=== PATIENT | female | born 1985 | race Caucasian/White ===

== ENCOUNTER 2021-08-17 05:28 | Inpatient (IN) | payer OTHER ==
[2021-08-17] MEDS ORDERED: Scopolamine 1.5 MG Transdermal Patch TRDERM ONE (05:30)
[2021-08-17] MEDS ORDERED: Acetaminophen 500 MG Tab PO ONE (05:30)
[2021-08-17] MEDS ORDERED: Celecoxib 200 MG Cap PO ONE (05:30)
[2021-08-17] MEDS ORDERED: Dextrose 5%-Lactated Ringers 1,000 ML IV SCH (06:00)
[2021-08-17] MEDS ORDERED: cefOXitin 2 GM Vial ONE (06:45)
[2021-08-17] MEDS ORDERED: Lidocaine 1% with EPINEPHrine 1:100,000 50 ML MDV ONE (06:46)
[2021-08-17] MEDS ORDERED: Bupivacaine 0.5% 50 ML MDV ONE (06:46)
[2021-08-17] MEDS ORDERED: fentaNYL 250 MCG/5 ML SDV ONE (06:58)
[2021-08-17] MEDS ORDERED: Glycopyrrolate 0.2 MG/ML 5 ML MDV ONE (06:59)
[2021-08-17] MEDS ORDERED: Succinylcholine 200 MG/10 ML MDV ONE (06:59)
[2021-08-17] MEDS ORDERED: Dexamethasone 4 MG/ML SDV ONE (06:59)
[2021-08-17] MEDS ORDERED: Propofol 200 MG/20 ML SDV ONE (06:59)
[2021-08-17] MEDS ORDERED: Neostigmine Methylsulfate 1 MG/ML 5 ML Syringe ONE (06:59)
[2021-08-17] MEDS ORDERED: Rocuronium 50 MG/5 ML Vial ONE (06:59)
[2021-08-17] MEDS ORDERED: Albuterol/Ipratropium 3.0-0.5 MG/3 ML Neb Soln NEB ONE (07:00)
[2021-08-17] MEDS ORDERED: Lactated Ringers 1,000 ML ONE (07:02)
[2021-08-17] MEDS ORDERED: cefOXitin 2 GM in Sodium Chloride 0.9% 50 ML IV ONE (07:15)
[2021-08-17] MEDS ORDERED: Ketamine 500 MG/5 ML MDV IV SCH (07:30)
[2021-08-17] MEDS ORDERED: Ketamine 19 MG in Sodium Chloride 0.9% 19.81 ML IV SCH (07:30)
[2021-08-17] MEDS ORDERED: fentaNYL 100 MCG/2 ML SDV ONE (08:35)
[2021-08-17] MEDS ORDERED: hydrOXYzine HCL 100 MG/2 ML SDV IM ONE (09:15)
[2021-08-17] MEDS ORDERED: Cyclobenzaprine 10 MG Tab PO PRN (10:05)
[2021-08-17] MEDS: oxyCODONE 5 MG Tab PO PRN ×3 (10:26→21:41)
[2021-08-17] MEDS: Albuterol/Ipratropium 3.0-0.5 MG/3 ML Neb Soln INH SCH ×3 (10:46→21:34)
[2021-08-17] MEDS ORDERED: Metoclopramide 10 MG/2 ML SDV IVPUSH PRN (11:00)
[2021-08-17] MEDS ORDERED: Albuterol/Ipratropium 3.0-0.5 MG/3 ML Neb Soln INH PRN (11:00)
[2021-08-17] MEDS ORDERED: HYDROmorphone 0.5 MG/0.5 ML Syringe IVPUSH PRN (11:00)
[2021-08-17] MEDS ORDERED: HYDROmorphone 1 MG/ML Syringe IV PRN (11:00)
[2021-08-17] MEDS ORDERED: Labetalol 20 MG/4 ML Syringe IVPUSH PRN (11:00)
[2021-08-17] MEDS ORDERED: diphenhydrAMINE 50 MG/ML SDV IVPUSH PRN (11:00)
[2021-08-17] MEDS ORDERED: Acetaminophen 500 MG Tab PO PRN (11:00)
[2021-08-17] MEDS ORDERED: Ondansetron 4 MG/2 ML SDV IVPUSH PRN (11:00)
[2021-08-17] MEDS: cefOXitin 2 GM in Sodium Chloride 0.9% 50 ML IV SCH ×2 (12:32→17:39)
[2021-08-17] MEDS: traMADol 50 MG Tab PO PRN (12:32)
[2021-08-17] MEDS: SCOPOLAMINE PATCH CHECK TOP SCH (12:34)
[2021-08-17] MEDS: Pantoprazole 40 MG Vial IVPUSH SCH (12:35)
[2021-08-17] MEDS ORDERED: hydrOXYzine HCL 100 MG/2 ML SDV IM PRN (13:00)
[2021-08-17] MEDS: Acetaminophen 500 MG Tab PO SCH ×2 (14:15→21:36)
[2021-08-17] MEDS: MVI, Adult with Vitamin K 10 ML, Thiamine 200 MG, Zinc/Copper/Manganese/Selenium 1 ML i... IV SCH ×4 (15:54)
[2021-08-17] MEDS: Heparin Sodium 5,000 Units/ML Vial SUBCUT SCH (17:39)
[2021-08-17] MEDS: Dextrose 5%-Lactated Ringers 1,000 ML IV SCH (22:14)
[2021-08-18] MEDS: cefOXitin 2 GM in Sodium Chloride 0.9% 50 ML IV SCH ×4 (00:23→19:12)
[2021-08-18] MEDS: oxyCODONE 5 MG Tab PO PRN (03:54)
[2021-08-18] MEDS: Dextrose 5%-Lactated Ringers 1,000 ML IV SCH ×2 (03:54→11:21)
[2021-08-18] MEDS ORDERED: Iopamidol 612 MG/ML 50 ML SDV PO ONE (03:55)
[2021-08-18] MEDS: Acetaminophen 500 MG Tab PO SCH ×3 (05:25→21:32)
[2021-08-18] MEDS: Heparin Sodium 5,000 Units/ML Vial SUBCUT SCH ×2 (05:26→19:13)
[2021-08-18] MEDS ORDERED: Ondansetron 4 MG Tab.DIS PO PRN (07:37)
[2021-08-18] MEDS ORDERED: hydrOXYzine HCl 25 MG Tab PO PRN (07:40)
[2021-08-18] MEDS ORDERED: Albuterol/Ipratropium 3.0-0.5 MG/3 ML Neb Soln INH PRN (07:41)
[2021-08-18] MEDS: Celecoxib 200 MG Cap PO SCH ×2 (08:45→20:25)
[2021-08-18] MEDS: Escitalopram 20 MG Tab PO SCH (08:45)
[2021-08-18] MEDS: Mometasone Furoate Nasal Spray 17 GM Canister NAS SCH (08:47)
[2021-08-18] MEDS: SCOPOLAMINE PATCH CHECK TOP SCH (08:48)
[2021-08-18] MEDS: Cetirizine 10 MG Tab PO SCH (08:48)
[2021-08-18] MEDS: traMADol 50 MG Tab PO PRN (08:56)
[2021-08-18] MEDS: Pantoprazole 40 MG Vial IVPUSH SCH (12:24)
[2021-08-18] MEDS: MVI, Adult with Vitamin K 10 ML, Thiamine 200 MG, Zinc/Copper/Manganese/Selenium 1 ML i... IV SCH ×4 (16:32)
[2021-08-19] MEDS: cefOXitin 2 GM in Sodium Chloride 0.9% 50 ML IV SCH ×2 (00:19→07:32)
[2021-08-19] MEDS: Dextrose 5%-Lactated Ringers 1,000 ML IV SCH (03:58)
[2021-08-19] MEDS: Heparin Sodium 5,000 Units/ML Vial SUBCUT SCH (06:15)
[2021-08-19] MEDS: Acetaminophen 500 MG Tab PO SCH (06:16)
[2021-08-19] MEDS: SCOPOLAMINE PATCH CHECK TOP SCH (08:49)
[2021-08-19] MEDS ORDERED: Cyanocobalamin (Vitamin B12) 1,000 MCG/ML SDV IM ONE (09:00)
[2021-08-19] MEDS: Escitalopram 20 MG Tab PO SCH (09:37)
[2021-08-19] MEDS: Celecoxib 200 MG Cap PO SCH (09:37)
[2021-08-19] MEDS: Cetirizine 10 MG Tab PO SCH (09:37)
[2021-08-19] MEDS: Mometasone Furoate Nasal Spray 17 GM Canister NAS SCH (09:38)
== END 2021-08-19 12:52 | disposition home or self-care (01) | DRG 620 ==
LOC: JP.SDS 05:28 → JP.SDSSCHI 05:28 → EDSTATUS 07:15 → JP.MS 09:15
PROVIDERS: ADMIT Surgery; ATTEND Surgery
PROC: 0D164ZA Bypass Stomach to Jejunum, Percutaneous Endoscopic Approach (ICD-10-PCS; principal; 2021-08-17)
PROC: 0WBC4ZZ Excision of Mediastinum, Percutaneous Endoscopic Approach (ICD-10-PCS; 2021-08-17)
PROC: 0BQT4ZZ Repair Diaphragm, Percutaneous Endoscopic Approach (ICD-10-PCS; 2021-08-17)
PROC: 0FB24ZX Excision of Left Lobe Liver, Percutaneous Endoscopic Approach, Diagnostic (ICD-10-PCS; 2021-08-17)
PROC: 0DB64ZZ Excision of Stomach, Percutaneous Endoscopic Approach (ICD-10-PCS; 2021-08-17)
DX: E66.01 Morbid (severe) obesity due to excess calories (principal); Q79.60 Ehlers-Danlos syndrome, unspecified; F33.0 Major depressive disorder, recurrent, mild; R16.0 Hepatomegaly, not elsewhere classified; K44.9 Diaphragmatic hernia without obstruction or gangrene; D17.4 Benign lipomatous neoplasm of intrathoracic organs; J45.909 Unspecified asthma, uncomplicated; F90.9 Attention-deficit hyperactivity disorder, unspecified type; K29.70 Gastritis, unspecified, without bleeding; F41.1 Generalized anxiety disorder; Z91.048 Other nonmedicinal substance allergy status; Z87.442 Personal history of urinary calculi; Z68.41 Body mass index [BMI] 40.0-44.9, adult; Z91.09 Other allergy status, other than to drugs and biological substances
CPT/HCPCS: 36415; 74240; 82947; 84703; 86850; 86900; 86901; 94640; A9270-GY; C9113; J0171; J0330; J0694; J1100; J1644; J2704; J2710; J2795; J3010; J3410; J3411; J3420; J3490; J7120; J7121; J7620; Q0162; Q9967